=== PATIENT | female | born 1970 | race African-American/Black ===

== ENCOUNTER → 2016-06-24 | Outpatient (CLI) | payer OTHER ==
[~2016-06-24] MED LIST: GLUCOPHAGE500 MG PO; IRON 100 PLUS1 EAC1 PO
--- NOTE | ~2016-06-24 | PFT ---
[id number] [facility]. [place], [place] [address] [id number] O MR#: [id number] NAME: BERNA BLAIR ROOM: SEX: F STUDY DATE/TIME: 07/01/2016 : 1970 AGE: 45 STUDY DESCRIPTION: Attending Physician: Umu King M.D. Referring Physician: Umu King M.D. Primary Care Physician: Umu King M.D. PULMONARY DIAGNOSTIC REPORT EXAM Pulmonary function test. FINDINGS Spirometry is normal. There is no significant response to bronchodilators. Flow volume is unremarkable. Lung volumes suggest a restrictive defect with a total lung capacity of 69%. Diffusion capacity is normal. Results are somewhat conflicting. There could be a restrictive defect secondary to obesity and certainly clinical correlation is required. Consider short-term repeat PFTs to monitor total lung capacity. Dictated by... Toño Al M.D. SAUL/alon TD: 07/01/2016 13:19 JOB #: [id number] PULMONARY DIAGNOSTIC REPORT Page 1 of 1
== END | disposition home or self-care (01) ==
LOC: CRC 09:38
DX: R05 Cough (principal)
CPT/HCPCS: 94060; 94726; 94729

== ENCOUNTER → 2016-07-07 | Day surgery (SDC) | payer OTHER ==
--- NOTE | ~2016-07-07 | OR ---
Unit #: [id number] #: [id number] Patient: BERNA BLAIR [id number] [address] [place], [place] [address] [id number] O MR#: [id number] NAME: BERNA BLAIR ROOM: Date of Procedure: 07/07/2016 Admission Date: 07/07/2016 Surgeon: Declan Collazo M.D. : 1970 Attending Physician: Declan Collazo M.D. Referring Physician: Declan Collazo M.D. Primary Care Physician: Umu King M.D. OPERATIVE REPORT PRIMARY CARE PHYSICIAN Umu iKng M.D. PREOPERATIVE DIAGNOSES The patient has presented with a history of dyspepsia, postprandial upper abdominal pain and epigastric pain, and heartburn. In addition, she needs a surveillance colonoscopy having had history of rectal carcinoid. PROCEDURES PERFORMED Upper gastrointestinal endoscopy and colonoscopy up to cecum. POSTOPERATIVE DIAGNOSES For upper endoscopy: 1. The patient had moderately severe distal erosive esophagitis. 2. Small hiatus hernia. 3. A distal esophageal mucosal ring. 4. Rest of the examination up to third part of the duodenum was normal. For colonoscopy: Mild sigmoid and descending colon diverticulosis. Otherwise, examination was normal up to cecum. The quality of the prep was excellent. RECOMMENDATIONS 1. Omeprazole 40 mg p.o. daily. 2. The patient will be followed up in the office in 3 months' time. She requires a surveillance colonoscopy in 2 to 3 years. SEDATION USED MAC. DESCRIPTION OF PROCEDURE Following detailed explanation of potential risks and complications of an upper endoscopy and a colonoscopy, namely perforation, bleeding, and complications related to sedation, the patient was brought to GI lab and laid in the left lateral decubitus position. Lubricated tip of the Olympus video upper endoscope was passed through the bite block into the proximal esophagus under direct vision. The entire esophageal mucosa was examined and the patient was noted to have moderately severe distal erosive ulcerative esophagitis. In addition, there was distal esophageal mucosal ring, which was felt to be wide open. A small hiatus hernia was also encountered and traversed with. The scope was then advanced into the gastric cavity. Mucosa of the fundus, body, and antrum was examined and appeared unremarkable. Pylorus was intubated with visualization of the Unit #: [id number] #: [id number] Patient: BERNA BLAIR normal duodenal bulb and second and third part of the duodenum. Upon withdrawal and retroflexion, incisura, cardia, and greater curve was examined and no additional findings were noted. The scope was then withdrawn in the distal esophagus. Entire esophageal mucosa was examined all the way up to pharynx. No additional findings were noted. The examination table was then turned by 180 degrees and the patient was positioned for a colonoscopy. A digital rectal examination was performed, which was normal. Lubricated tip of the Olympus video colonoscope was inserted through the anus and advanced under direct vision. The scope was advanced past rectosigmoid into descending colon. Multiple small diverticula were seen in this area. The scope tip was then navigated all the way up to cecum with visualization of the ileocecal valve and the appendiceal orifice. Preparation was excellent with good visualization and photodocumentation was obtained. Successive segments of the colonic mucosa were examined upon withdrawal and appeared unremarkable. There being no polyps, mass lesions, or AVMs. The patient did not have any polyps throughout the examination. Other than the scant diverticula seen in the left side, no other abnormalities were noted. The scope was then withdrawn and the patient returned to recovery area. She tolerated the procedure without any postprocedure complications. Dictated by... Haydee Auguste/sandra TD: 07/07/2016 23:49 JOB #: [id number] OPERATIVE REPORT Page 1 of 1 X Declan Collazo MD X PROCEDURE OPERATIVE NOTE
== END | disposition home or self-care (01) ==
LOC: COPS 12:42
DX: K21.0 Gastro-esophageal reflux disease with esophagitis (principal); K44.9 Diaphragmatic hernia without obstruction or gangrene; K22.2 Esophageal obstruction; Z12.11 Encounter for screening for malignant neoplasm of colon; Z85.040 Personal history of malignant carcinoid tumor of rectum; K57.30 Diverticulosis of large intestine without perforation or abscess without bleeding; E78.5 Hyperlipidemia, unspecified; I10 Essential (primary) hypertension; G20 Parkinson's disease
CPT/HCPCS: 43235; G0105; 82947